=== PATIENT | male | born 1995 | race Caucasian/White ===

== ENCOUNTER 2021-06-23 21:38 | Emergency (ER) | payer BC ==
[~2021-06-23] VITALS: Ht 177.8 cm; Wt 79.4 kg
== END 2021-06-23 23:58 | disposition home or self-care (01) ==
LOC: ER 21:38
DX: S02.2XXA Fracture of nasal bones, initial encounter for closed fracture (principal); R55 Syncope and collapse; Y04.2XXA Assault by strike against or bumped into by another person, initial encounter
CPT/HCPCS: 70486; 99284-25; L0160

== ENCOUNTER 2021-07-07 08:42 | Day surgery (SDC) | payer BC ==
[~2021-07-07] VITALS: Ht 167.6 cm; Wt 79.2 kg
--- NOTE | 2021-07-07 13:03 | NUR ---
07/07/21 1303 NELIDA GIBSON PAIN 12/02 ON DISCHARGE. MUSTACHE DRESSING GIVEN TO PT. PT TO GO TO DR. EUGENE FOR SINUS RINSE KIT. PT TO [employer] ABX- RX GIVEN. WORK RELEASE GIVEN TO PT UNTIL .
== END 2021-07-07 12:50 | disposition home or self-care (01) ==
LOC: ORSCSDS 08:42
PROVIDERS: Otolaryngology
PROC: 0NSBXZZ Reposition Nasal Bone, External Approach (ICD-10-PCS; principal; 2021-07-07 10:15)
DX: S02.2XXA Fracture of nasal bones, initial encounter for closed fracture (principal)
CPT/HCPCS: A9270; C9046; J1100; J2250; J2405; J2704; J3010; J7120